=== PATIENT | female | born 1995 | race Two or more races ===

== ENCOUNTER 2017-04-09 05:51 | Emergency (ER) | payer SELFPAY ==
[~2017-04-09] VITALS: Ht 167.6 cm; Wt 65.0 kg
[2017-04-09] MEDS ORDERED: NS 1,000 ML IV ONE (06:30)
[2017-04-09] MEDS ORDERED: ONDANSETRON 4MG/2ML VIAL (J2405) IV ONE (06:30)
[2017-04-09] MEDS ORDERED: MORPHINE 4 MG/ML 1ML SYRINGE IV PRN (06:30)
[2017-04-09 06:53] LABS: BASO % 0.6 % (0.0-1.0); EOS # 0.2 10^3/uL (0.0-0.50); EOS % 2.8 % (0.0-3.0); IMMATURE GRANULOCYTE % 0.2 % (0-0); MEAN CORPUSCULAR HEMOGLOBIN 29.1 pg (27.0-33.0); MEAN CORPUSCULAR HGB CONC 32.7 g/dl (32.0-36.5); MEAN CORPUSCULAR VOLUME 88.8 fl (80.0-96.0); MONO # 0.6 10^3/uL (0.0-0.8); MONO % 10.7 % (0.0-5.0); NEUTROPHILS # 2.7 10^3/uL (1.8-7.7); NEUTROPHILS % 48.7 % (36.0-66.0); PLATELET COUNT, AUTOMATED 300 10^3/uL (150-450); RED CELL DISTRIBUTION WIDTH 13.9 % (11.5-14.5); WHITE BLOOD COUNT 5.4 10^3/uL (4.0-10.0)
[2017-04-09 06:54] VITALS: BP 122/74
[2017-04-09 07:03] LABS: CONTROL LINE HCG INT CTR LINE PRESENT
[2017-04-09 07:08] LABS: ANION GAP 7 MEQ/L (8-16); BLOOD UREA NITROGEN 23 MG/DL (7-18); CALCIUM LEVEL 8.8 MG/DL (8.5-10.1); CARBON DIOXIDE LEVEL 25 MEQ/L (21-32); CHLORIDE LEVEL 111 MEQ/L (98-107); CREATININE FOR GFR 0.62 MG/DL (0.55-1.02); GLUCOSE, FASTING 90 MG/DL (70-105); POTASSIUM SERUM 3.8 MEQ/L (3.5-5.1); SODIUM LEVEL 143 MEQ/L (136-145)
--- NOTE | 2017-04-09 08:35 | REP ---
Clinical: Pelvic pain. Technique: Transabdominal pelvic ultrasound followed by transvaginal examination for better evaluation of the endometrium and adnexa. Findings: Normal anteverted uterus deviated to the right measures 9.0 x 3.7 x 6.4 cm. Endometrial complex measures 8 mm thickness and appears normal. Trace pelvic fluid is nonspecific and likely physiologic. Bilateral ovaries are normal in appearance and vascularity. Right ovary measures 3.5 x 1.9 x 3.0 cm; RI = 0.58. Left ovary measures 2.4 x 1.5 x 1.6 cm; RI = 0.58 no pelvic fluid or adnexal mass lesion. Bladder is collapsed. Impression: Normal pelvic ultrasound. Signed by Ru Apodaca MD 04/09/2017 08:27 A
== END 2017-04-09 08:42 | disposition left against medical advice (07) ==
LOC: M ED 05:51 → EDBD 05:51 → M ED 08:42
DX: N94.6 Dysmenorrhea, unspecified (principal); E03.9 Hypothyroidism, unspecified; Z53.21 Procedure and treatment not carried out due to patient leaving prior to being seen by health care provider; F17.200 Nicotine dependence, unspecified, uncomplicated
CPT/HCPCS: 76830; 76856; 80048; 84443; 84703; 85025; 93976; 96361; 96374; 96375; 99284; J2405

== ENCOUNTER 2017-04-11 14:57 | Emergency (ER) | payer SELFPAY ==
[~2017-04-11] VITALS: Ht 167.6 cm; Wt 63.6 kg
[2017-04-11] MEDS ORDERED: MIDOTAB11 PO (15:21)
[2017-04-11 15:49] LABS: MEAN CORPUSCULAR HEMOGLOBIN 28.4 pg (27.0-33.0); MEAN CORPUSCULAR HGB CONC 32.5 g/dl (32.0-36.5); MEAN CORPUSCULAR VOLUME 87.4 fl (80.0-96.0); PLATELET COUNT, AUTOMATED 334 10^3/uL (150-450); WHITE BLOOD COUNT 5.6 10^3/uL (4.0-10.0)
[2017-04-11 16:13] LABS: ANION GAP 8 MEQ/L (8-16); BLOOD UREA NITROGEN 19 MG/DL (7-18); CALCIUM LEVEL 9.3 MG/DL (8.5-10.1); CARBON DIOXIDE LEVEL 26 MEQ/L (21-32); CHLORIDE LEVEL 105 MEQ/L (98-107); GLUCOSE, FASTING 90 MG/DL (70-105); POTASSIUM SERUM 3.9 MEQ/L (3.5-5.1); SODIUM LEVEL 139 MEQ/L (136-145)
[2017-04-11] MEDS ORDERED: PERCOCET 5MG/325MG TAB PO ONE (16:30)
[2017-04-11] MEDS ORDERED: ONDANSETRON 4 MG ORAL DISINTEGRATING TAB (S0181) PO ONE (17:15)
[2017-04-11 18:23] VITALS: BP 111/57
== END 2017-04-11 18:27 | disposition home or self-care (01) ==
LOC: M ED 14:57
DX: N94.6 Dysmenorrhea, unspecified (principal); E03.9 Hypothyroidism, unspecified; F17.200 Nicotine dependence, unspecified, uncomplicated; F12.10 Cannabis abuse, uncomplicated